=== PATIENT | male | born 1995 | race Caucasian/White ===

== ENCOUNTER 2019-05-18 19:32 | Emergency (ER) | payer SELFPAY ==
[~2019-05-18] VITALS: Ht 167.6 cm; Wt 79.4 kg
[2019-05-18 19:35] VITALS: BP 178/98
--- NOTE | 2019-05-18 22:12 | NUR ---
PT AMBULATED TO ER BED 5
--- NOTE | 2019-05-18 22:39 | NUR ---
DR. CRUZ BEDSIDE EVALUATING PT
--- NOTE | 2019-05-18 22:58 | NUR ---
PT C/O SORE THROAT X1 MONTH. STATES HE HAS DRY COUGH. DENIES FEVER. PT STATES SMOKES MARIJUANA. RR EVEN AND UNLABORED. PT IN NO APPARENT DISTRESS. CALM AND PLEASANT IN BED. VSS. MEDHX: DENIES ALLERGIES: DENIES
[2019-05-18 23:27] VITALS: BP 135/82
--- NOTE | 2019-05-18 23:27 | NUR ---
DISCHARGE PAPERS GIVEN TO PT. PT STATES RELIEF. VSS. INSTRUCTED TO F/U WITH PCP AND WHEN TO RETURN TO ER. PT VERBALLIZED UNDERSTANDING OF DC INSTRUCTIONS. ALL QUESTOINS ANSWERED.
== END 2019-05-18 23:27 | disposition home or self-care (01) ==
LOC: MED 19:32
DX: R00.2 Palpitations (principal); K21.9 Gastro-esophageal reflux disease without esophagitis; F12.20 Cannabis dependence, uncomplicated
CPT/HCPCS: 71045; 93005; 99283